=== PATIENT | female | born 1945 | race Caucasian/White ===

== ENCOUNTER → 2024-12-30 12:12 | Outpatient (BNVA) | payer MEDICARE, SELFPAY | PROVIDERS: Visit Provider Student in an Organized Health Care Education/Training Program | DX: Z51.5 Encounter for palliative care (principal); R18.8 Other ascites; K72.10 Chronic hepatic failure without coma | CPT/HCPCS: 99204 ==

== ENCOUNTER → 2025-01-07 11:18 | Day surgery (SDC) | payer OTHER, SELFPAY ==
[2025-01-07 11:50] VITALS: BP 150/73; PULSE 92; RESP 16; TEMP 36.8; O2SAT 100
[2025-01-07 12:09] VITALS: BMI 24.3
--- NOTE | 2025-01-07 12:11 | US_ITS ---
WS: [id number] ULTRASOUND-GUIDED PARACENTESIS CLINICAL INFORMATION: abdominal ascites COMPARISON: None. Procedure Informed consent: The risks, benefits, and alternatives of the procedure were discussed with the patient. Verbal and written consent was obtained. Timeout: A timeout was performed to confirm the correct patient, procedure, and site. Preparation: A suitable skin site was identified. The patient was prepped and draped in usual sterile fashion. Lidocaine 1% was used for local anesthesia. Catheter: 4 Slovak One-step Yueh catheter. Side: RIGHT lower quadrant. Fluid Volume: 4000 ml Color: Clear yellow DISPOSITION: Discarded safely. Complications: None. Patient disposition: Discharged from the department in stable condition. US/US paracentesis abd w [id number] IMPRESSION: Uncomplicated ultrasound-guided paracentesis. Removal of 4000 cc
[2025-01-07 13:14] VITALS: BP 132/62
== END ==
LOC: GILAB 11:22
PROVIDERS: Radiology Neuroradiology; Visit Provider Student in an Organized Health Care Education/Training Program
PROC: (CPT 49082; principal; 2025-01-07 13:00)
DX: R18.8 Other ascites (principal)
CPT/HCPCS: 49083